=== PATIENT | female | born 1965 | race Caucasian/White ===

== ENCOUNTER 2023-12-24 17:21 | Emergency (ER) | payer MEDICARE, SELFPAY ==
[2023-12-24 17:25] VITALS: BP 169/67; PULSE 120; RESP 20; TEMP 37.3; O2SAT 94
--- NOTE | 2023-12-24 17:47 | ED.URI ---
HPI - URI/Sore Throat General Chief Complaint: Upper Respiratory Infection Stated Complaint: sinus/cough Time Seen by Provider: 12/24/23 17:40 Source: patient and RN notes reviewed Mode of arrival: ambulatory Limitations: no limitations History of Present Illness HPI Narrative: Patient presents today complaining of a dry cough, sinus pressure, nasal congestion, and fever up to 101. Symptoms began this morning. She has used her inhaler without much relief. History of COPD and asthma. States she does have a nebulizer, but has not tried it. Related Data Home Medications Medication Instructions Recorded Confirmed albuterol sulfate 90 mcg/actuation 2 puff inhalation Q4-6H PRN 12/24/23 12/24/23 aerosol inhaler (Ventolin HFA) Shortness Of Breath Or Wheezing alprazolam 0.5 mg tablet 0.5 mg PO TID PRN Anxiety 12/24/23 12/24/23 atorvastatin 20 mg tablet 20 mg PO DAILY 12/24/23 12/24/23 budesonide-formoterol HFA 160 1 inh inhalation DAILY 12/24/23 12/24/23 mcg-4.5 mcg/actuation aerosol inhaler (Symbicort) clopidogrel 75 mg tablet 75 mg PO DAILY 12/24/23 12/24/23 fluticasone propionate 50 2 spray intranasal DAILY 12/24/23 12/24/23 mcg/actuation nasal spray,suspension ipratropium 0.5 mg-albuterol 3 mg 3 ml inhalation Q6H PRN Shortness 12/24/23 12/24/23 (2.5 mg base)/3 mL nebulization Of Breath Or Wheezing soln metoprolol succinate 50 mg 50 mg PO BID 12/24/23 12/24/23 tablet,extended release 24 hr montelukast 10 mg tablet 10 mg PO DAILY 12/24/23 12/24/23 sitagliptin phosphate 100 mg 100 mg PO DAILY 12/24/23 12/24/23 tablet (Januvia) tiotropium bromide 18 mcg capsule 18 mcg inhalation DAILY 12/24/23 12/24/23 with inhalation device (Spiriva with HandiHaler) tramadol 50 mg tablet 50 mg PO BID 12/24/23 12/24/23 trazodone 50 mg tablet 50 mg PO QHS 12/24/23 12/24/23 varenicline 1 mg tablet 1 mg PO BID 12/24/23 12/24/23 Allergies Allergy/AdvReac Type Severity Reaction Status Date / Time prednisone Allergy Severe Anaphylaxis Verified 12/24/23 18:04 terbutaline Allergy Unknown Unknown Verified 12/24/23 17:47 doxycycline AdvReac Intermediate Diarrhea Verified 12/24/23 18:07 azithromycin AdvReac Mild Other Verified 12/24/23 18:06 erythromycin base AdvReac Mild Other Verified 12/24/23 18:06 BRATHINE Allergy Unknown Unknown Uncoded 12/24/23 17:47 MILK AND MILK [employer]ODUCTS Allergy Unknown Unknown Uncoded 12/24/23 17:47 SYMPATHOMIMADR Allergy Unknown Unknown Uncoded 12/24/23 17:47 Review of Systems Review of Systems: CONSTITUTIONAL: Denies body aches, chills, or sweats.+ fever EYES: Denies visual changes, redness, or discharge. ENT: Denies rhinorrhea, sore throat, or otalgia.+ congestion, sinus pressure CARDIOVASCULAR: Denies chest pain, palpitations, or edema. RESPIRATORY: + cough, wheezing GASTROINTESTINAL: Denies abdominal pain, nausea, vomiting, or diarrhea. GENITOURINARY: Denies dysuria or hematuria. SKIN: Denies rash, itching, or wounds. MUSCULOSKELETAL: Denies back pain, joint pain, or myalgia. NEUROLOGIC: Denies headache, numbness, tingling, or weakness. PSYCH: Denies depression or anxiety. [facility] Past Medical History Medical History (Updated 12/24/23 @ 18:31 by Rochelle Jacobo, [facility], ) Asthma COPD exacerbation SVT (supraventricular tachycardia) Comments At time of signature, I have reviewed and agree with nursing past medical, surgical, social and family history unless otherwise noted. Please see nursing chart for further information. There is no relevant family history pertinent to the presenting complaint Exam Narrative: GENERAL: Mildly ill-appearing, well-nourished, and in no acute distress. HEAD: Normocephalic, atraumatic. EYES: EOMI. No redness or drainage. Conjunctivae normal. ENT: Mucous membranes pink and moist. Nares congested. No rhinorrhea. TMs normal bilaterally. Throat normal. Uvula midline. NECK: Normal AROM. Supple. No lymphadenopathy. CHEST: No respiratory dist
== END 2023-12-24 18:18 | disposition home or self-care (01) ==
PROVIDERS: Emergency Provider Nurse Practitioner
DX: J44.1 Chronic obstructive pulmonary disease with (acute) exacerbation (principal); J06.9 Acute upper respiratory infection, unspecified; Z20.822 Contact with and (suspected) exposure to COVID-19
CPT/HCPCS: 87426; 87804; 99213; G0463